=== PATIENT | female | born 1965 | race Caucasian/White ===

== ENCOUNTER → 2016-08-14 | Outpatient (CLI) | payer BC, OTHER ==
[~2016-08-14] MED LIST: ALBUAER INH; AMOX875T PO; ATV/1 PO; CETI10TA84 PO; CITA20TA4 PO; CITA40TA12 PO; LAMO100T16 PO; LORA10TA51 PO; MELO7.5T5 PO; MOME100A INH; OMEP40CA PO; PRLSR20 PO; TRAM-10 PO; VNTHFA/IN INH
--- NOTE | 2016-08-14 08:33 | DIAGNOSTIC IMAGING REPORT ---
DOUBLE CONTRAST BARIUM ESOPHAGRAM CLINICAL HISTORY: Swallowing difficulty. COMPARISON STUDY: Abdominal CT dated 07/26/2014. TECHNIQUE: A standard air contrast barium esophagram is performed. Multiple spot images of the esophagus are acquired both upright and prone. FINDINGS: The patient swallowed barium without difficulty. The barium pill became lodged in the distal esophagus before passing into the stomach. Mild dysmotility is observed. The distal esophagus is slightly patulous. The mucosal pattern is normal. There is no evidence of intrinsic or extrinsic mass lesion. No aspiration was seen. The gastroesophageal junction distended normally. No gastroesophageal reflux could be elicited by having the patient perform the Valsalva maneuver. A small hiatal hernia is identified. Fluoroscopy time: 1.5 minutes. Fluoroscopic images: 27 IMPRESSION: 1. Mild esophageal dysmotility. The barium pill became lodged in the distal esophagus before passing in the stomach. 2. Small hiatal hernia. Electronically signed by: Travis Dior M.D. 08/14/2016 8:31 AM Dictated Date/Time: 08/14/2016 8:28 AM
== END | disposition home or self-care (01) ==
LOC: C.RAD 07:51
PROVIDERS: ATTEND Family Medicine
DX: H69.80 Other specified disorders of Eustachian tube, unspecified ear (principal); F41.8 Other specified anxiety disorders; R13.10 Dysphagia, unspecified; K44.9 Diaphragmatic hernia without obstruction or gangrene

== ENCOUNTER → 2016-10-21 | Outpatient (CLI) | payer OTHER ==
[~2016-10-21] MED LIST changes: -CITA20TA4 PO
--- NOTE | 2016-10-21 15:44 | DIAGNOSTIC IMAGING REPORT ---
CHEST 2 VIEWS ROUTINE CLINICAL HISTORY: Status post intercostal nerve block COMPARISON STUDY: No previous studies for comparison. FINDINGS: The cardiac and mediastinal contours are normal. There is no evidence of focal pulmonary consolidation. There is no evidence of failure. No pleural effusions are visualized.[ There is no pneumothorax. Increased markings the right medial lung base are felt to be secondary to either atelectasis or a fat pad. IMPRESSION: No active disease in the chest. No evidence of pneumothorax status post intercostal nerve block. Electronically signed by: Ramon Isabel M.D. 10/21/2016 3:42 PM Dictated Date/Time: 10/21/2016 3:41 PM
== END | disposition home or self-care (01) ==
LOC: C.RADBC 15:07
PROVIDERS: ATTEND Anesthesiology
DX: Z98.890 Other specified postprocedural states (principal)

== ENCOUNTER → 2016-12-05 | Outpatient (CLI) | payer OTHER ==
[~2016-12-05] MED LIST changes: -OMEP40CA PO
--- NOTE | 2016-12-05 13:57 | DIAGNOSTIC IMAGING REPORT ---
TWO VIEW CHEST CLINICAL HISTORY: Status post right intercostal injection. FINDINGS: PA and lateral chest radiographs are compared to study dated 10/21/2016. The examination is degraded by large body habitus. The cardiomediastinal silhouette is unremarkable. There is mild bibasilar atelectasis. The lungs and pleural spaces are otherwise clear. There is no pneumothorax. The skeletal structures are osteopenic. The bony thorax appears intact. Cholecystectomy clips are identified in the right upper quadrant. IMPRESSION: 1. No pneumothorax is seen post procedure. 2. There is no airspace consolidation or pleural effusion. Electronically signed by: Travis Dior M.D. 12/05/2016 1:55 PM Dictated Date/Time: 12/05/2016 1:54 PM
== END | disposition home or self-care (01) ==
LOC: C.RADBC 10:33
PROVIDERS: ATTEND Anesthesiology
DX: Z98.890 Other specified postprocedural states (principal)

== ENCOUNTER → 2017-02-06 | Outpatient (CLI) | payer OTHER ==
[~2017-02-06] MED LIST changes: -LORA10TA51 PO
--- NOTE | 2017-02-06 10:10 | DIAGNOSTIC IMAGING REPORT ---
CHEST 2 VIEWS ROUTINE CLINICAL HISTORY: Status post intercostal nerve block. Evaluate for pneumothorax. COMPARISON STUDY: Chest radiograph December 05, 2016. FINDINGS: Lung volumes are normal. There is no pneumothorax or pleural effusion. A calcified left mid to lower lung nodule is incidentally noted. Cardiomediastinal silhouette is normal. There is no consolidation. Pulmonary vascularity is normal. The appearance of the chest is unchanged. IMPRESSION: No acute cardiopulmonary findings. No pneumothorax. Electronically signed by: Mannie Maravilla M.D. 02/06/2017 10:09 AM Dictated Date/Time: 02/06/2017 10:06 AM
== END | disposition home or self-care (01) ==
LOC: C.RADBC 08:00
PROVIDERS: ATTEND Anesthesiology
DX: Z98.890 Other specified postprocedural states (principal)

== ENCOUNTER → 2017-03-14 | Outpatient (CLI) | payer OTHER ==
[~2017-03-14] MED LIST changes: +OPTIRAY 320 IV PRN
--- NOTE | 2017-03-14 11:22 | DIAGNOSTIC IMAGING REPORT ---
HEAD COMBO CLINICAL HISTORY: Severe headache. Blurred vision. COMPARISON STUDY: MRI the brain November 17, 2012. TECHNIQUE: Axial images of the head were obtained before and after intravenous administration of 94 cc Optiray 320 IV. FINDINGS: No acute intracranial hemorrhage, midline shift or mass effect is present. Ventricular system is normal. Basilar cisterns are patent. There are no extra-axial collections. Thompson-white differentiation is maintained. There are no findings to suggest acute dural sinus thrombosis or acute territorial infarct. There is no intracranial mass or pathologic enhancement. There are no significant calvarial abnormalities. Visualized portions of the sinuses and mastoid air cells are clear. IMPRESSION: 1. No acute intracranial findings. 2. No intracranial mass or pathologic enhancement. Electronically signed by: Mannie Maravilla M.D. 03/14/2017 11:20 AM Dictated Date/Time: 03/14/2017 11:15 AM
== END | disposition home or self-care (01) ==
LOC: C.CTS 10:47
PROVIDERS: ATTEND Nurse Practitioner Family
DX: R51 Headache (principal)

== ENCOUNTER 2017-03-18 15:53 | Emergency (ER) | payer OTHER ==
[~2017-03-18] VITALS: Ht 165.1 cm; Wt 99.3 kg
[~2017-03-18 15:53] MED LIST changes: -AMOX875T PO; -OPTIRAY 320 IV PRN; -TRAM-10 PO; -VNTHFA/IN INH
[2017-03-18 15:59] VITALS: TEMP 36.7; Ht 165.1 cm; Wt 99.3 kg
[2017-03-18] MEDS ORDERED: AMOX875T PO (16:18)
[2017-03-18] MEDS ORDERED: VNTHFA/IN INH (16:18)
[2017-03-18] MEDS ORDERED: ONDANSETRON 8 MG/54 ML D5W IV STA (16:19)
[2017-03-18] MEDS ORDERED: MoRPHine SULFATE 4 MG/ML 1 ML CARP\\VIAL IV STA (16:19)
[2017-03-18] MEDS ORDERED: SODIUM CHLORIDE 0.9% 1000ML 1,000 ML IV STA (16:19)
[2017-03-18] MEDS ORDERED: OPTIRAY 320 IV PRN (16:30)
[2017-03-18 16:43] LABS: BASO % 0.4 %; BASO ABS # 0.04 K/uL (0-0.2); COMPLETE YES; HEMATOCRIT 48.9 % (37-47); IG% 0.6 %; LYMPH % 27.9 %; LYMPH ABS # 2.76 K/uL (1.2-3.4); MEAN CELL VOLUME 92.4 fL (80-100); MEAN CORPUSCULAR HGB CONC 33.5 g/dl (32-36); MEAN PLATELET VOLUME 10.4 fL (7.4-10.4); MONO % 8.1 %; PLATELET COUNT 265 K/uL (130-400); RED BLOOD COUNT 5.29 M/uL (4.2-5.4); WHITE BLOOD COUNT 9.88 K/uL (4.8-10.8)
[2017-03-18 17:01] LABS: INR 0.9 (0.9-1.1); PROTHROMBIN TIME (PATIENT) 9.6 SECONDS (9.0-12.0)
[2017-03-18 17:02] LABS: ALT/SGPT 18 U/L (12-78); BLOOD UREA NITROGEN 11 mg/dl (7-18); BUN/CREATININE RATIO 13.3 (10-20); CALCIUM 9.1 mg/dl (8.5-10.1); CARBON DIOXIDE 27 mmol/L (21-32); CHLORIDE 106 mmol/L (98-107); CREATININE 0.82 mg/dl (0.60-1.20); GLUCOSE 89 mg/dl (70-99); SODIUM 139 mmol/L (136-145)
[2017-03-18 17:07] LABS: ALB/GLOB RATIO 0.9 (0.9-2); ALKALINE PHOSPHATASE 116 U/L (45-117); AST/SGOT 13 U/L (15-37)
--- NOTE | 2017-03-18 19:06 | DIAGNOSTIC IMAGING REPORT ---
ABD/PELVIS IV AND ORAL CONT CT DOSE: 1335.74 mGy.cm HISTORY: Pain periumbilical pain, hernia TECHNIQUE: Multiaxial CT images of the abdomen and pelvis were performed following the use of intravenous and oral contrast. A dose lowering technique was utilized adhering to the principles of ALARA. COMPARISON STUDY: 07/26/2014 FINDINGS: Lung bases are clear. Mild fatty infiltration of liver. Cholecystectomy. Pancreas is uniform. Kidneys enhance uniformly. No evidence for hydronephrosis. Bowel pattern overall is nonobstructive. There is a fat-containing periumbilical hernia. This is increased from 1.6 to 2.9 cm in maximal cross-sectional dimension. There is no evidence of bowel containment or obstruction. Bladder is midline. There is no significant free fluid within the cul-de-sac. IMPRESSION: 1. Fat-containing periumbilical hernia increased from 1.62 to 3cm in maximum transaxial dimension. 2. No evidence of bowel containment or obstruction. 3. Mild fatty infiltration of liver. 4. Otherwise negative study post cholecystectomy The above report was generated using voice recognition software. It may contain grammatical, syntax or spelling errors. Electronically signed by: Luis Fernando Gold M.D. 03/18/2017 7:05 PM Dictated Date/Time: 03/18/2017 6:59 PM
--- NOTE | 2017-03-18 19:10 | EMERGENCY ROOM VISIT NOTE ---
History Report prepared by Augustina: Ramsey Souza Under the Supervision of: Dr. Sheila Breaux D.O. First contact with patient: 16:02 Chief Complaint: ABDOMINAL PAIN Stated Complaint: INJFECTED? HERNIA History of Present Illness The patient is a 51 year old female who presents to the Emergency Room with complaints of a constant, burning sensation to the periumbilical region of her abdomen beginning three days ago. The patient states that she has history of three hernias at her umbilicus and an infected gallstone. She reports that she had one surgery to remove them all. The patient notes that the gallstone and hernias occurred one year after her cholecystectomy. She states that she developed another hernia, in the same location, one month ago. The patient reports that three days ago she sneezed and immediately experienced a burning in the location of her hernia. She notes that movement worsens her symptoms, but it is tolerable when she is resting. The patient states that she called her PCP and was told to go the ED. She reports that the lump is getting bigger and it is currently warm. The patient notes that she has also been experiencing more problems with her GERD, nausea, and a subjected low grade fever. She denies chills. The patient states that she is currently on Augmentin for a sinus infection. She reports that she has not had a bowel movement in three days. The patient notes that a few days ago, she drank on cup of coffee and a can of mountain dew. She states that she went to the restroom eight times in four hours. The patient reports that this typically happens with water, nothing else. She notes that she has not taken medication for her pain because she does not like swallowing pills. The patient notes that she has a history of severe trauma from rolling down 14 stairs at work. She states that she is still recovering. Source of History: patient Onset: three days ago Position: abdomen (periumbilical) Quality: burning Timing: constant Modifying Factors (Worsening): movement Modifying Factors (Relieving): rest Associated Symptoms: + fevers, + nausea, No chills Note: Associated symptoms: constipation, GERD, increased urinary frequency Review of Systems See HPI for pertinent positives & negatives. A total of 10 systems reviewed and were otherwise negative. Past Medical & Surgical Medical Problems: (1) GERD (gastroesophageal reflux disease) (2) Hernia Family History Patient reports no known family medical history. Social History Smoking Status: Current Every Day Smoker Marital Status: Occupation Status: unemployed Current/Historical Medications Scheduled Amoxicillin & Pot Clavulanate (Augmentin 875-125 mg), 1 TAB PO BID Citalopram Hydrobromide (Celexa), 1 TAB PO DAILY Lamotrigine (Lamictal), 100 MG PO DAILY Meloxicam (Mobic), 15 MG PO DAILY Mometasone Furoate-Formoterol (Dulera 100/5 Mcg), 2 PUFFS INH BID Omeprazole (Prilosec), 40 MG PO DAILY Scheduled PRN Albuterol Hfa (Ventolin Hfa), 2-4 PUFFS INH Q6H PRN for Shortness of Breath Lorazepam (Ativan), 1.5 MG PO DAILY PRN for Anxiety Tramadol (Ultram), 50 MG PO Q4H PRN for Pain Allergies Coded Allergies: BEE STING (Unverified Allergy, Severe, VOMITING/SWELLING, 03/18/17) Bacitracin (Verified Allergy, Unknown, SEVERE RASH, 03/18/17) Bess Pepper (Unverified Allergy, Unknown, GI ISSUES, 03/18/17) Hydrocodone (Verified Allergy, Unknown, INSOMNIA, RESTLESSNESS, 03/18/17) Neomycin (Verified Allergy, Unknown, SEVERE RASH, 03/18/17) Polymyxin B (Verified Allergy, Unknown, SEVERE RASH, 03/18/17) Acetaminophen (Verified Adverse Reaction, Unknown, VOMITING, 03/18/17) Doxycycline (Verified Adverse Reaction, Unknown, VOMITING, 03/18/17) Oxycodone (Verified Adverse Reaction, Unknown, VOMITING, 03/18/17) Physical Exam Vital Signs Date Time Temp Pulse Resp B/P (MAP) Pulse Ox O2 Delivery O2 Flow Rate FiO2 03/18/17 20:46 82 16 101/49 97 03/18/17 19:52 85 16 103/75 96 Room Air 03/18/17 17:43 86 16 107/80 94 Room Air 03/18/17 15:59 36.7 111 16 143/82 93 Room Air Physical Exam GENERAL: alert, well appearing, well nourished, no distress, non-toxic, very obese EYE EXAM: normal conjunctiva, PERRL and EOM's grossly intact OROPHARYNX: no exudate, no erythema, lips, buccal mucosa, and tongue normal and mucous membranes are dry NECK: supple, no nuchal rigidity, no adenopathy, non-tender LUNGS: Clear to auscultation. Normal chest wall mechanics HEART: no murmurs, S1 normal and S2 normal ABDOMEN: abdomen soft, normo-active bowel sounds, no masses, no rebound or guarding. Superior to the umbilicus - area of firmness with tenderness upon palpation. Nearly well-healed surgical scar, no obvious mass. Rest of abdomen was nontender, no overlying erythema. BACK: Back is symmetrical on inspection and there is no deformity, no midline tenderness, no CVA tenderness. SKIN: no rashes and no bruising UPPER EXTREMITIES: upper extremities are grossly normal. LOWER EXTREMITIES: No pitting edema. NEURO EXAM: Normal sensorium, cranial nerves II-XII grossly intact, normal speech, no gross weakness of arms, no gross weakness of legs. Medical Decision & Procedures ER Provider Diagnostic Interpretation: CT:Per my review, radiologist interpretation. ABD/PELVIS IV AND ORAL CONT CT DOSE: 1335.74 mGy.cm HISTORY: Pain periumbilical pain, hernia TECHNIQUE: Multiaxial CT images of the abdomen and pelvis were performed following the use of intravenous and oral contrast. A dose lowering technique was utilized adhering to the principles of ALARA. COMPARISON STUDY: 07/26/2014 FINDINGS: Lung bases are clear. Mild fatty infiltration of liver. Cholecystectomy. Pancreas is uniform. Kidneys enhance uniformly. No evidence for hydronephrosis. Bowel pattern overall is nonobstructive. There is a fat-containing periumbilical hernia. This is increased from 1.6 to 2.9 cm in maximal cross-sectional dimension. There is no evidence of bowel containment or obstruction. Bladder is midline. There is no significant free fluid within the cul-de-sac. IMPRESSION: 1. Fat-containing periumbilical hernia increased from 1.62 to 3cm in maximum transaxial dimension. 2. No evidence of bowel containment or obstruction. 3. Mild fatty infiltration of liver. 4. Otherwise negative study post cholecystectomy The above report was generated using voice recognition software. It may contain grammatical, syntax or spelling errors. Electronically signed by: Luis Fernando Gold M.D. 03/18/2017 7:05 PM Dictated Date/Time: 03/18/2017 6:59 PM Laboratory Results 03/18/17 16:30 Red Blood Count 5.29, Mean Corpuscular Volume 92.4, Mean Corpuscular Hemoglobin 31.0, Mean Corpuscular Hemoglobin Concent 33.5, Mean Platelet Volume 10.4, Neutrophils (%) (Auto) 62.0, Lymphocytes (%) (Auto) 27.9, Monocytes (%) (Auto) 8.1, Eosinophils (%) (Auto) 1.0, Basophils (%) (Auto) 0.4, Neutrophils # (Auto) 6.12, Lymphocytes # (Auto) 2.76, Monocytes # (Auto) 0.80, Eosinophils # (Auto) 0.10, Basophils # (Auto) 0.04 03/18/17 16:30 Test 03/18/17 16:30 White Blood Count 9.88 K/uL (4.8-10.8) Red Blood Count 5.29 M/uL (4.2-5.4) Hemoglobin 16.4 g/dL (12.0-16.0) Hematocrit 48.9 % (37-47) Mean Corpuscular Volume 92.4 fL (80-100) Mean Corpuscular Hemoglobin 31.0 pg (25-34) Mean Corpuscular Hemoglobin Concent 33.5 g/dl (32-36) Platelet Count 265 K/uL (130-400) Mean Platelet Volume 10.4 fL (7.4-10.4) Neutrophils (%) (Auto) 62.0 % Lymphocytes (%) (Auto) 27.9 % Monocytes (%) (Auto) 8.1 % Eosinophils (%) (Auto) 1.0 % Basophils (%) (Auto) 0.4 % Neutrophils # (Auto) 6.12 K/uL (1.4-6.5) Lymphocytes # (Auto) 2.76 K/uL (1.2-3.4) Monocytes # (Auto) 0.80 K/uL (0.11-0.59) Eosinophils # (Auto) 0.10 K/uL (0-0.5) Basophils # (Auto) 0.04 K/uL (0-0.2) RDW Standard Deviation 45.4 fL (36.4-46.3) RDW Coefficient of Variation 13.5 % (11.5-14.5) Immature Granulocyte % (Auto) 0.6 % Immature Granulocyte # (Auto) 0.06 K/uL (0.00-0.02) Prothrombin Time 9.6 SECONDS (9.0-12.0) Prothromb Time International Ratio 0.9 (0.9-1.1) Urine Color YELLOW Urine Appearance CLEAR (CLEAR) Urine pH 6.5 (4.5-7.5) Urine Specific [place] 1.023 (1.000-1.030) Urine Protein NEG (NEG) Urine Glucose (UA) NEG (NEG) Urine Ketones TRACE (NEG) Urine Occult Blood NEG (NEG) Urine Nitrite NEG (NEG) Urine Bilirubin NEG (NEG) Urine Urobilinogen NEG (NEG) Urine Leukocyte Esterase TRACE (NEG) Urine WBC (Auto) 1-5 /hpf (0-5) Urine RBC (Auto) 0-4 /hpf (0-4) Urine Hyaline Casts (Auto) 1-5 /lpf (0-5) Urine Epithelial Cells (Auto) 20-30 /lpf (0-5) Urine Bacteria (Auto) NEG (NEG) Anion Gap 6.0 mmol/L (3-11) Est Creatinine Clear Calc Drug Dose 93.7 ml/min Estimated GFR () 95.4 Estimated GFR (Non- 82.3 BUN/Creatinine Ratio 13.3 (10-20) Lactic Acid Level 1.2 mmol/L (0.4-2.0) Calcium Level 9.1 mg/dl (8.5-10.1) Total Bilirubin 0.2 mg/dl (0.2-1) Aspartate Amino Transf (AST/SGOT) 13 U/L (15-37) Alanine Aminotransferase (ALT/SGPT) 18 U/L (12-78) Alkaline Phosphatase 116 U/L (45-117) Troponin I < 0.015 ng/ml (0-0.045) Total Protein 6.7 gm/dl (6.4-8.2) Albumin 3.2 gm/dl (3.4-5.0) Globulin 3.5 gm/dl (2.5-4.0) Albumin/Globulin Ratio 0.9 (0.9-2) Laboratory results per my review. Medications Administered Medications (Trade) Dose Ordered Sig/Johnson Route Start Time Stop Time Status Last Admin Dose Admin Sodium Chloride 1,000 ml @ 250 mls/hr Q4H STAT IV 03/18/17 16:19 03/18/17 20:18 DC 03/18/17 16:38 250 MLS/HR Morphine Sulfate (MoRPHine SULFATE INJ) 4 mg NOW STAT IV 03/18/17 16:19 03/18/17 16:22 DC 03/18/17 16:38 4 MG Ondansetron HCl (Zofran 8mg Iv) 8 mg NOW STAT IV 03/18/17 16:19 03/18/17 16:22 DC 03/18/17 16:40 8 MG Tramadol HCl (Ultram Tab) 50 mg NOW STAT PO 03/18/17 19:48 03/18/17 19:49 DC 03/18/17 19:52 50 MG ECG Indication: abdominal pain Rate (beats per minute): 98 Rhythm: normal sinus Findings: no acute ischemic change, no ectopy, other (Normal axis and interval) ED Course 1604: The patient was evaluated in room C02B. A complete history and physical exam was performed. 1618: Ordered Ondansetron HCl 8mg IV, Morphine Sulfate 4mg IV, Sodium Chloride 1000 ml @ 250 mls/hr IV 1942: I reevaluated the patient, she is resting. I updated her of her current exam findings and test results. She is still experiencing some discomfort. We are going to try Tramadol. 1947: Ordered Tramadol HCl 50mg PO 2033: Upon reevaluation, the patient is feeling better. I discussed the findings and the treatment plan with the patient. She verbalizes agreement and understanding. The patient was discharged home. Medical Decision Differential diagnoses includes but is not limited to gastritis, peptic ulcer disease, GERD, gallbladder disease, pancreatitis, small bowel obstruction, acute coronary syndrome, pericarditis, ischemic bowel, irritable bowel disease, irritable bowel syndrome, appendicitis, diverticulitis, malignancy, hernia, urinary tract infection, torsion, /ectopic , perforation, trauma, infectious. Pt with prior hx of hernia and repairs, fat containing hernia on CT noted, labs otw reassuring. Discussed with pt all results, minimizing activity which could exacerbate pain. Discussed f/u with surgeon, discussed sx to watch/return for, use of meds, she verbalized understanding and was agreeable with plan. VS otw stable. Doubt occult vascular or infectious pathology. Impression Primary Impression: Abdominal pain Additional Impression: Hernia of abdominal wall Scribe Attestation The scribe's documentation has been prepared under my direction and personally reviewed by me in its entirety. I confirm that the note above accurately reflects all work, treatment, procedures, and medical decision making performed by me. Departure Information Dispostion Home / Self-Care Prescriptions Tramadol (Ultram) 50 Mg Tab 50 MG PO Q4H Y for Pain, #10 TAB Prov: Sheila Breaux, DO 03/18/17 Referrals Shakir Hernandez M.D. (PCP) Forms Call Back Authorization, HOME CARE DOCUMENTATION FORM, IMPORTANT VISIT INFORMATION Patient Instructions My [facility] Additional Instructions Please follow up with your regular doctor. You may use the pain medications as prescribed. If you have any worsening pain, develop fevers, vomiting, notice black or bloody stools, or you have any other new concerns, please return the emergency room. Problem Qualifiers Primary Impression: Abdominal pain Abdominal location: unspecified location Qualified Codes: R10.9 - Unspecified abdominal pain
[2017-03-18 19:33] LABS: URINE APPEARANCE CLEAR (CLEAR); URINE BILIRUBIN NEG (NEG); URINE COLOR YELLOW; URINE EPITHELIAL CELL AUTO 20-30 /lpf (0-5); URINE NITRITE NEG (NEG); URINE PH 6.5 (4.5-7.5); URINE SPECIFIC GRAVITY 1.023 (1.000-1.030); UROBILINOGEN NEG (NEG); ZZUR CULT IF INDIC CLEAN CATCH NO
[2017-03-18] MEDS ORDERED: TRAMADOL HCL 50 MG TAB PO STA (19:48)
[2017-03-18 19:50] LABS: MANUAL MICROSCOPIC REQUIRED? NO; REVIEW REQ? NO
[2017-03-18] MEDS ORDERED: TRAM-10 PO (20:14)
[2017-03-18 20:46] VITALS: BP 101/49; PULSE 82; O2SAT 97
== END 2017-03-18 20:47 | disposition home or self-care (01) ==
LOC: C.EDB 15:55 → C.EDC 20:47
DX: R10.9 Unspecified abdominal pain (principal); K43.9 Ventral hernia without obstruction or gangrene; K21.9 Gastro-esophageal reflux disease without esophagitis; F17.200 Nicotine dependence, unspecified, uncomplicated

== ENCOUNTER → 2017-07-02 | Outpatient (CLI) | payer OTHER ==
[~2017-07-02] MED LIST changes: -ALBUAER INH; -CETI10TA84 PO; +VNTHFA/IN INH
--- NOTE | 2017-07-02 11:21 | DIAGNOSTIC IMAGING REPORT ---
L WRIST W/NAVICULAR MIN 3 VIEWS CLINICAL HISTORY: LEFT WRIST FRACTURE COMPARISON: [facility] radiograph from [facility] [place] dated 06/08/2017 DISCUSSION: There is been interval application of a fiberglass cast. There is subtle sclerosis near the level of the previously identified transverse distal radial fracture. Fracture appears nondisplaced. The fine bony details obscured by the cast. IMPRESSION: Casted nondisplaced distal radial fracture Electronically signed by: Ramon Isabel M.D. 07/02/2017 11:20 AM Dictated Date/Time: 07/02/2017 11:18 AM
== END | disposition home or self-care (01) ==
LOC: C.RDSM 10:30
PROVIDERS: ATTEND Physician Assistant
DX: S52.502D Unspecified fracture of the lower end of left radius, subsequent encounter for closed fracture with routine healing (principal); X58.XXXD Exposure to other specified factors, subsequent encounter

== ENCOUNTER → 2017-07-18 | Outpatient (CLI) | payer OTHER ==
--- NOTE | 2017-07-18 14:52 | DIAGNOSTIC IMAGING REPORT ---
LEFT WRIST 5 VIEWS HISTORY: Left wrist fracture. Follow-up. COMPARISON: Left wrist 07/02/2017. FINDINGS: The overlying cast has been removed. The distal radius fracture appears to be completely healed. No acute fracture or dislocation within the left wrist. 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 Soft tissues are unremarkable. No radiopaque foreign bodies. IMPRESSION: Complete healing of the distal radius fracture. Electronically signed by: Robert Galarza M.D. 07/18/2017 2:50 PM Dictated Date/Time: 07/18/2017 2:48 PM
== END | disposition home or self-care (01) ==
LOC: C.RDSM 08:00
PROVIDERS: ATTEND Physician Assistant
DX: M25.539 Pain in unspecified wrist (principal)

== ENCOUNTER → 2017-08-11 | Outpatient (CLI) | payer OTHER ==
--- NOTE | 2017-08-11 15:02 | DIAGNOSTIC IMAGING REPORT ---
CHEST 2 VIEWS ROUTINE CLINICAL HISTORY: 51 years-old Female presenting with NERVE BLOCK. TECHNIQUE: PA and lateral views of the chest were obtained. COMPARISON: 05/01/2017. FINDINGS: Cardiomediastinal silhouette normal. Lungs and pleural spaces clear. Osseous structures normal. Upper abdomen normal. IMPRESSION: 1. No acute cardiopulmonary disease. Electronically signed by: Puma Bhatia M.D. 08/11/2017 3:01 PM Dictated Date/Time: 08/11/2017 3:00 PM
== END | disposition home or self-care (01) ==
LOC: C.RADBC 14:37
PROVIDERS: ATTEND Anesthesiology
DX: Z97.8 Presence of other specified devices (principal)

== ENCOUNTER → 2017-08-16 | Outpatient (CLI) | payer OTHER ==
--- NOTE | 2017-08-15 13:36 | DIAGNOSTIC IMAGING REPORT ---
L WRIST MIN 3 VIEWS ROUTINE CLINICAL HISTORY: LEFT WRIST FRACTURE trauma. Pain. COMPARISON: 07/18/2017 DISCUSSION: Signal and shows complete healing fractures distal radius. Bony alignment is anatomic. All remaining osseous structures are unremarkable. There is no evidence for soft tissue swelling. IMPRESSION: Anatomic alignment status post complete healing of the distal radial fracture. The above report was generated using voice recognition software. It may contain grammatical, syntax or spelling errors. Electronically signed by: Luis Fernando Gold M.D. 08/15/2017 1:35 PM Dictated Date/Time: 08/15/2017 1:34 PM
== END | disposition home or self-care (01) ==
LOC: C.RDSM 13:22
PROVIDERS: ATTEND Physician Assistant
DX: Z87.81 Personal history of (healed) traumatic fracture (principal); Z88.1 Allergy status to other antibiotic agents; Z88.5 Allergy status to narcotic agent; Z91.048 Other nonmedicinal substance allergy status; Z91.030 Bee allergy status

== ENCOUNTER → 2017-09-11 | Outpatient (CLI) | payer OTHER ==
[2017-09-11 18:23] LABS: BLOOD UREA NITROGEN 12 mg/dl (7-18); CALCIUM 8.9 mg/dl (8.5-10.1); CARBON DIOXIDE 29 mmol/L (21-32); CREATININE 0.99 mg/dl (0.60-1.20); GLUCOSE 109 mg/dl (70-99); POTASSIUM 3.9 mmol/L (3.5-5.1); SODIUM 139 mmol/L (136-145)
== END | disposition home or self-care (01) ==
LOC: C.LABMFLN 10:55
PROVIDERS: ATTEND Student in an Organized Health Care Education/Training Program
DX: M25.50 Pain in unspecified joint (principal); R29.6 Repeated falls

== ENCOUNTER → 2017-09-24 | Outpatient (CLI) | payer OTHER ==
--- NOTE | 2017-09-24 13:46 | DIAGNOSTIC IMAGING REPORT ---
CHEST 2 VIEWS ROUTINE CLINICAL HISTORY: 51 years-old Female presenting with R/O PNEUMOTHERAPY, nerve block. TECHNIQUE: PA and lateral views of the chest were obtained. COMPARISON: 08/11/2017. FINDINGS: Cardiomediastinal silhouette normal. Linear opacities in the right mid lung unchanged. Lungs and pleural spaces clear. Osseous structures normal. Upper abdomen normal. IMPRESSION: 1. No acute cardiopulmonary disease. No pneumothorax. 2. Right lung scarring unchanged. Electronically signed by: Puma Bhatia M.D. 09/24/2017 1:45 PM Dictated Date/Time: 09/24/2017 1:43 PM
== END | disposition home or self-care (01) ==
LOC: C.RADBC 13:09
PROVIDERS: ATTEND Anesthesiology
DX: Z98.890 Other specified postprocedural states (principal)

== ENCOUNTER → 2017-09-29 | Outpatient (CLI) | payer OTHER ==
--- NOTE | 2017-09-29 14:15 | DIAGNOSTIC IMAGING REPORT ---
TWO VIEW CHEST CLINICAL HISTORY: Postprocedural examination. Assess for pneumothorax. FINDINGS: PA and lateral chest radiographs are compared to study dated 09/24/2017. The cardiomediastinal silhouette is unremarkable. Nonspecific interstitial thickening is similar to previous. Scattered calcified granulomas are observed. No airspace consolidation or pleural effusion is identified. There is no pneumothorax. The bony thorax appears intact. IMPRESSION: 1. No pneumothorax is seen post procedure. 2. No airspace consolidation or pleural effusion is identified. Electronically signed by: Travis Dior M.D. 09/29/2017 2:14 PM Dictated Date/Time: 09/29/2017 2:13 PM
== END | disposition home or self-care (01) ==
LOC: C.RADBC 13:33
PROVIDERS: ATTEND Anesthesiology
DX: Z98.890 Other specified postprocedural states (principal)

== ENCOUNTER → 2017-10-14 | Outpatient (CLI) | payer OTHER ==
--- NOTE | 2017-10-14 13:02 | DIAGNOSTIC IMAGING REPORT ---
L WRIST W/NAVICULAR MIN 3 VIEWS CLINICAL HISTORY: 51 years-old Female presenting with LEFT SCAPHOID AND DISTAL RADIUS FRACTURE. TECHNIQUE: Frontal, bilateral oblique, lateral, and scaphoid views of the left wrist were obtained. COMPARISON: 07/18/2017. FINDINGS: Osteopenia suspected. No deformity of the distal radius is visible. No acute fracture or malalignment. No advanced degenerative change. No radiographic soft tissue abnormality. IMPRESSION: 1. No deformity of the distal radius is visible. 2. No acute osseous injury. 3. Suspected osteopenia. Electronically signed by: Puma Bhatia M.D. 10/14/2017 1:01 PM Dictated Date/Time: 10/14/2017 12:59 PM
== END | disposition home or self-care (01) ==
LOC: C.RDSM 07:30
PROVIDERS: ATTEND Physician Assistant
DX: S52.572D Other intraarticular fracture of lower end of left radius, subsequent encounter for closed fracture with routine healing (principal); S62.025D Nondisplaced fracture of middle third of navicular [scaphoid] bone of left wrist, subsequent encounter for fracture with routine healing; X58.XXXD Exposure to other specified factors, subsequent encounter

== ENCOUNTER → 2017-11-04 | Outpatient (CLI) | payer OTHER ==
[~2017-11-04] MED LIST changes: +RANI150T3 PO
--- NOTE | 2017-11-05 07:45 | PULMONARY FUNCTION TEST ---
READING BASED OF ATS STANDARDS: Mild obstructive ventilatory disease which corrects post-bronchodilator. BRONCHODILATOR RESPONSE: Not significant response. INTERPRETATION: Mild obstructive ventilatory disease.
== END | disposition home or self-care (01) ==
LOC: C.RC 13:30
PROVIDERS: ATTEND Family Medicine
DX: J44.9 Chronic obstructive pulmonary disease, unspecified (principal); J45.909 Unspecified asthma, uncomplicated

== ENCOUNTER 2018-01-20 15:26 | Emergency (ER) | payer OTHER ==
[~2018-01-20] VITALS: Ht 167.6 cm; Wt 101.1 kg
[~2018-01-20 15:26] MED LIST changes: +ALBUTEROL INH; +CETI10TA84 PO
[2018-01-20 15:30] VITALS: TEMP 37.1; Ht 167.6 cm; Wt 101.1 kg
[2018-01-20 16:05] LABS: BASO % 0.3 %; BASO ABS # 0.03 K/uL (0-0.2); EOS % 3.3 %; HEMATOCRIT 44.7 % (37-47); HEMOGLOBIN 15.3 g/dL (12.0-16.0); IG# 0.06 K/uL (0.00-0.02); MEAN CELL VOLUME 90.1 fL (80-100); MEAN CORPUSCULAR HEMOGLOBIN 30.8 pg (25-34); MEAN CORPUSCULAR HGB CONC 34.2 g/dl (32-36); MEAN PLATELET VOLUME 10.7 fL (7.4-10.4); MONO ABS # 0.74 K/uL (0.11-0.59); NEUT % 62.7 %; NEUT ABS # 5.78 K/uL (1.4-6.5); PLATELET COUNT 291 K/uL (130-400); RED CELL DISTRIBUTION WIDTH CV 12.9 % (11.5-14.5); RED CELL DISTRIBUTION WIDTH SD 42.2 fL (36.4-46.3); WHITE BLOOD COUNT 9.21 K/uL (4.8-10.8)
[2018-01-20] MEDS ORDERED: SODIUM CHLORIDE 0.9% 1000ML 1,000 ML IV STA (16:18)
[2018-01-20 16:26] LABS: CALCIUM 9.1 mg/dl (8.5-10.1); POTASSIUM 3.6 mmol/L (3.5-5.1); TOTAL PROTEIN 7.8 gm/dl (6.4-8.2)
--- NOTE | 2018-01-20 17:06 | DIAGNOSTIC IMAGING REPORT ---
ABDOMEN 2VIEW W/PA CHEST RTN HISTORY: 52 years-old Female abdominal pain, recent surgery acute generalized abdominal pain with recent surgery COMPARISON: Chest radiograph 12/23/2017, CT abdomen and pelvis 01/07/2018 TECHNIQUE: PA view of the chest with erect and supine views of the abdomen FINDINGS: Cardiomediastinal and hilar silhouettes are within normal limits. There is no pneumothorax, pleural effusion, focal airspace consolidation or overt pulmonary edema. Minimal linear subsegmental atelectasis/scarring about the lingula. Bones of the chest appear grossly intact. There are degenerative changes of the shoulders and spine. Mild convex right curvature about the midthoracic spine. Cholecystectomy clips are noted. Bowel gas pattern is nonobstructive. No pneumatosis or pneumoperitoneum. Phleboliths of the pelvis. No urolith. Mild gaseous distention is seen within loops of both large and small bowel small bowel loops measuring up to 3.0 cm within the central abdomen. No fracture. Mild degenerative changes about the lower lumbar spine and hips. IMPRESSION: 1. No acute process of the chest. 2. Nonobstructive bowel gas pattern without pneumoperitoneum. 3. Mild gaseous distention involving loops of both large and small bowel suggests ileus. The above report was generated using voice recognition software. It may contain grammatical, syntax or spelling errors. Electronically signed by: Wild Mckinney M.D. 01/20/2018 5:04 PM Dictated Date/Time: 01/20/2018 5:01 PM
[2018-01-20] MEDS ORDERED: ALBINS/ INH (17:27)
[2018-01-20] MEDS ORDERED: CEPH-571 PO (18:28)
[2018-01-20 18:30] VITALS: BP 122/98; PULSE 95; O2SAT 91
--- NOTE | 2018-01-20 18:30 | EMERGENCY ROOM VISIT NOTE ---
History First contact with patient: 15:34 Chief Complaint: OTHER COMPLAINT Stated Complaint: POST OP PAIN,MOUTH IRRITATION,BLOOD IN URINE History of Present Illness The patient is a 52 year old female who presents to the Emergency Room with multiple complaints. The patient states that she had "6 hernias repaired" approximately 1 week ago. She reports that she had mesh inserted as well. The surgery was done by Dr. Yates. She states that while in the hospital, her urine was a reddish orange color and this has continued since discharge. She has noticed that her urine is more red in color in the morning. She states that her incisions have been bothering her. She also complains of a dull, aching and burning sensation in her left lower back/flank. She is taking Ultram for her pain with some relief. She rates her overall discomfort an 8/ 10. She also reports that her mouth has been irritated and this happens every time she receives anesthesia. She has had a decreased appetite. She has been having bowel movements every day. She denies any nausea/vomiting, fevers, chest pain or shortness of breath. Review of Systems A complete 10 point review of systems was reviewed with the patient with pertinent positives and negatives as per history of present illness. All else were negative. Past Medical/Surgical History Medical Problems: (1) GERD (gastroesophageal reflux disease) (2) Hernia Family History Patient reports no known family medical history. Social History Smoking Status: Current Every Day Smoker Marital Status: Occupation Status: unemployed Current/Historical Medications Scheduled Cephalexin (Keflex), 1 CAP PO TID Cetirizine (Zyrtec), 10 MG PO QAM Citalopram Hydrobromide (Celexa), 1 TAB PO QAM Lamotrigine (Lamictal), 100 MG PO QAM Meloxicam (Mobic), 15 MG PO QAM Mometasone Furoate-Formoterol (Dulera 100/5 Mcg), 2 PUFFS INH BID Omeprazole (Prilosec), 40 MG PO QAM Ranitidine Hcl (Zantac), 1 TAB PO QPM Scheduled PRN Albuterol Hfa (Ventolin Hfa), 2-4 PUFFS INH Q6H PRN for Shortness of Breath Albuterol Sulf (Proventil 0.083% 2.5MG/3ML), 3 ML INH Q4H PRN for SOB/Wheezing Lorazepam (Ativan), 1.5 MG PO DAILY PRN for Anxiety Physical Exam Vital Signs Date Time Temp Pulse Resp B/P (MAP) Pulse Ox O2 Delivery O2 Flow Rate FiO2 01/20/18 18:30 95 20 122/98 91 01/20/18 17:58 95 20 115/91 90 Room Air 01/20/18 15:30 37.1 114 20 118/77 90 Room Air Physical Exam VITALS: Vitals are noted on the nurse's note and reviewed by myself. Vital signs stable. GENERAL: This is a 52-year-old female, in no acute distress, nondiaphoretic, well-developed well-nourished. SKIN: There are several well-healing surgical incisions to the abdomen with no evidence of inflammation or infection. MOUTH: Mucous membranes moist. There are white patches to the cheeks consistent with oral candidiasis. HEART: Regular rate and rhythm without murmurs gallops or rubs. LUNGS: Clear to auscultation bilaterally without wheezes, rales or rhonchi. ABDOMEN: There are well-healing surgical incisions the abdomen consistent with recent laparoscopic surgery. Positive bowel sounds x 4. Abdomen is soft and nondistended. There is mild generalized tenderness to palpation with no focal tenderness. NEURO: Patient was alert and oriented to person place and time. Medical Decision & Procedures ER Provider Diagnostic Interpretation: ABDOMEN 2VIEW W/PA CHEST RTN HISTORY: 52 years-old Female abdominal pain, recent surgery acute generalized abdominal pain with recent surgery COMPARISON: Chest radiograph 12/23/2017, CT abdomen and pelvis 01/07/2018 TECHNIQUE: PA view of the chest with erect and supine views of the abdomen FINDINGS: Cardiomediastinal and hilar silhouettes are within normal limits. There is no pneumothorax, pleural effusion, focal airspace consolidation or overt pulmonary edema. Minimal linear subsegmental atelectasis/scarring about the lingula. Bones of the chest appear grossly intact. There are degenerative changes of the shoulders and spine. Mild convex right curvature about the midthoracic spine. Cholecystectomy clips are noted. Bowel gas pattern is nonobstructive. No pneumatosis or pneumoperitoneum. Phleboliths of the pelvis. No urolith. Mild gaseous distention is seen within loops of both large and small bowel small bowel loops measuring up to 3.0 cm within the central abdomen. No fracture. Mild degenerative changes about the lower lumbar spine and hips. IMPRESSION: 1. No acute process of the chest. 2. Nonobstructive bowel gas pattern without pneumoperitoneum. 3. Mild gaseous distention involving loops of both large and small bowel suggests ileus. Laboratory Results 01/20/18 15:52 Red Blood Count 4.96, Mean Corpuscular Volume 90.1, Mean Corpuscular Hemoglobin 30.8, Mean Corpuscular Hemoglobin Concent 34.2, Mean Platelet Volume 10.7, Neutrophils (%) (Auto) 62.7, Lymphocytes (%) (Auto) 25.0, Monocytes (%) (Auto) 8.0, Eosinophils (%) (Auto) 3.3, Basophils (%) (Auto) 0.3, Neutrophils # (Auto) 5.78, Lymphocytes # (Auto) 2.30, Monocytes # (Auto) 0.74, Eosinophils # (Auto) 0.30, Basophils # (Auto) 0.03 01/20/18 15:52 Test 01/20/18 15:52 White Blood Count 9.21 K/uL (4.8-10.8) Red Blood Count 4.96 M/uL (4.2-5.4) Hemoglobin 15.3 g/dL (12.0-16.0) Hematocrit 44.7 % (37-47) Mean Corpuscular Volume 90.1 fL (80-100) Mean Corpuscular Hemoglobin 30.8 pg (25-34) Mean Corpuscular Hemoglobin Concent 34.2 g/dl (32-36) Platelet Count 291 K/uL (130-400) Mean Platelet Volume 10.7 fL (7.4-10.4) Neutrophils (%) (Auto) 62.7 % Lymphocytes (%) (Auto) 25.0 % Monocytes (%) (Auto) 8.0 % Eosinophils (%) (Auto) 3.3 % Basophils (%) (Auto) 0.3 % Neutrophils # (Auto) 5.78 K/uL (1.4-6.5) Lymphocytes # (Auto) 2.30 K/uL (1.2-3.4) Monocytes # (Auto) 0.74 K/uL (0.11-0.59) Eosinophils # (Auto) 0.30 K/uL (0-0.5) Basophils # (Auto) 0.03 K/uL (0-0.2) RDW Standard Deviation 42.2 fL (36.4-46.3) RDW Coefficient of Variation 12.9 % (11.5-14.5) Immature Granulocyte % (Auto) 0.7 % Immature Granulocyte # (Auto) 0.06 K/uL (0.00-0.02) Urine Color ORANGE Urine Appearance CLEAR (CLEAR) Urine pH 5.5 (4.5-7.5) Urine Specific [place] 1.024 (1.000-1.030) Urine Protein NEG (NEG) Urine Glucose (UA) NEG (NEG) Urine Ketones TRACE (NEG) Urine Occult Blood NEG (NEG) Urine Nitrite POS (NEG) Urine Bilirubin NEG (NEG) Urine Urobilinogen POS (NEG) Urine Leukocyte Esterase MODERATE (NEG) Urine WBC (Auto) 1-5 /hpf (0-5) Urine RBC (Auto) 0-4 /hpf (0-4) Urine Hyaline Casts (Auto) 1-5 /lpf (0-5) Urine Epithelial Cells (Auto) >30 /lpf (0-5) Urine Bacteria (Auto) NEG (NEG) Anion Gap 8.0 mmol/L (3-11) Est Creatinine Clear Calc Drug Dose 78.1 ml/min Estimated GFR () 74.5 Estimated GFR (Non- 64.3 BUN/Creatinine Ratio 11.1 (10-20) Calcium Level 9.1 mg/dl (8.5-10.1) Total Bilirubin 0.9 mg/dl (0.2-1) Aspartate Amino Transf (AST/SGOT) 52 U/L (15-37) Alanine Aminotransferase (ALT/SGPT) 52 U/L (12-78) Alkaline Phosphatase 139 U/L (45-117) Total Protein 7.8 gm/dl (6.4-8.2) Albumin 3.0 gm/dl (3.4-5.0) Globulin 4.8 gm/dl (2.5-4.0) Albumin/Globulin Ratio 0.6 (0.9-2) Medications Administered Medications (Trade) Dose Ordered Sig/Johnson Route Start Time Stop Time Status Last Admin Dose Admin Sodium Chloride 1,000 ml @ 999 mls/hr Q1H1M STAT IV 01/20/18 16:18 01/20/18 17:18 DC 01/20/18 16:30 999 MLS/HR Medical Decision Differential diagnosis includes UTI, pyelonephritis, postoperative pain, postoperative infection, ileus, small bowel obstruction, among others. The patient is a 52-year-old female who presents today complaining of discomfort after incisional hernia repair. Labs revealed no leukocytosis, anemia or concerning electrolyte abnormalities. Urinalysis was suggestive of infection, with presence of nitrites and leukocyte esterase. Given this and patient's symptoms, she will be treated with hepatic for possible UTI pending culture. Abdominal series was performed and shows no obstructive findings, but does show findings suggestive of ileus. Patient was advised to keep a clear liquid diet for the next few days and return here if she has any vomiting or worsening abdominal pain. She will follow-up with her surgeon as scheduled. She does have findings suggestive of oral candidiasis and reports she has had this previously when receiving anesthesia. She will be placed on nystatin which was called into the pharmacy by the ED pharmacist. The patient's case was reviewed with Dr. Kirkpatrick, ED attending physician, who agreed with my assessment and treatment plan. Based on the patient's presentation and work up, I feel the patient is stable for outpatient treatment. The patient was educated to return to the emergency department for any worsening of their current condition or new/concerning symptoms. She will follow up with her surgeon. Medication Reconcilliation Current Medication List: was personally reviewed by me Blood Pressure Screening Patient's blood pressure: Normal blood pressure Impression Primary Impression: UTI (urinary tract infection) Additional Impressions: Ileus Oral candidiasis Departure Information Dispostion Home / Self-Care Condition GOOD Prescriptions Cephalexin (KEFLEX) 500 Mg Cap 1 CAP PO TID for 7 Days, #21 CAP Prov: Kecia Flores ., ASHLI 01/20/18 Referrals Shakir Hernandez M.D. (PCP) Ameya Yates, DO Patient Instructions My [facility] Additional Instructions Keflex as prescribed. This is for a possible UTI. Nystatin as prescribed. This is for your oral thrush. Keep a clear liquid diet for the next 24-48 hours. Make sure to stay well hydrated. Follow-up with your surgeon as scheduled or sooner if needed. Return to the emergency department for any worsening abdominal pain, vomiting, fevers or any other worsening or new/concerning symptoms. Problem Qualifiers Primary Impression: UTI (urinary tract infection)
== END 2018-01-20 18:30 | disposition home or self-care (01) ==
LOC: C.EDB 15:27 → C.EDC 18:30
DX: N39.0 Urinary tract infection, site not specified (principal); K56.7 Ileus, unspecified; B37.0 Candidal stomatitis; Z98.890 Other specified postprocedural states; F17.200 Nicotine dependence, unspecified, uncomplicated; K21.9 Gastro-esophageal reflux disease without esophagitis; Z79.899 Other long term (current) drug therapy